=== PATIENT | female | born 1975 | race African-American/Black ===

== ENCOUNTER 2023-02-28 08:19 | Emergency (ER) | payer OTHER ==
[2023-02-28 08:58] LABS: Bilirubin Neg (Negative); Blood, Urine 50 (Negative); Glucose, Urine (Dipstick) Normal (Negative); Ketone, Urine Negative (Negative); Leukocyte 100 (Negative); Nitrite Negative (Negative); Protein, Urine (Dipstick) 15 mg/dl (Neg-Trace); Urobilinogen Normal mg/dL (Less than 2)
[2023-02-28 08:59] LABS: Clarity Clear (Clear)
[2023-02-28] MEDS ORDERED: Ibuprofen 200 MG TAB ONE (09:01)
[2023-02-28 09:03] LABS: RBC/HPF 0-3 HPF (0-3)
[2023-02-28 09:04] LABS: Bacteria/HPF None Seen HPF (None Seen); CAUTI Indications for Culture Pelvic or flank pain; Squamous Epithelial 0-3 HPF (0-3); Urine Culture Reflex No No
[2023-02-28] MEDS ORDERED: Sterile Water 10 ML ONE (09:30)
[2023-02-28] MEDS ORDERED: Azithromycin 250 MG TAB ONE (09:30)
[2023-02-28] MEDS ORDERED: cefTRIAXone (ROCEPHIN) 500 MG VIAL ONE (09:30)
[2023-02-28] MEDS ORDERED: Bicillin LA 2.4 MILL.UNITS/4 ML SYRINGE IM SCH (09:45)
[2023-02-28 13:02] LABS: Syphilis Antibody Index 6.62 S/CO (<1.00 Non-Reactive)
[2023-02-28 16:09] LABS: Syphilis Antibody INDETERMINATE (Nonreactive); Syphilis Titer Non-Reactive Titer (Negative)
== END 2023-02-28 10:43 | disposition home or self-care (01) ==
LOC: CSHERS 08:19
DX: R35.0 Frequency of micturition (principal); Z20.2 Contact with and (suspected) exposure to infections with a predominantly sexual mode of transmission
CPT/HCPCS: 36415; 81001; 86593; 86780; 96372; 99284; J0561; J0696